=== PATIENT | female | born 1980 | race Caucasian/White ===

== ENCOUNTER 2018-10-17 10:14 | Emergency (ER) | payer OTHER ==
[~2018-10-17] VITALS: Ht 157.5 cm; Wt 76.7 kg
[~2018-10-17 10:14] MED LIST: CEPHULAC10 G/15 ML PO; DESPEC-DM TABL1 EACH PO; KETO10TA2 PO; ORPH100T PO
== END 2018-10-17 11:48 | disposition home or self-care (01) ==
LOC: ER 10:14
DX: R09.89 Other specified symptoms and signs involving the circulatory and respiratory systems (principal); J98.01 Acute bronchospasm; J06.9 Acute upper respiratory infection, unspecified

== ENCOUNTER → 2019-06-01 | Day surgery (SDC) | payer OTHER ==
[~2019-06-01] MED LIST changes: +LOMAIRA8 MG
== END | disposition home or self-care (01) ==
LOC: ADM 05-29 10:45 → CIR.AMB 08:30
DX: N84.0 Polyp of corpus uteri (principal)

== ENCOUNTER → 2020-02-15 | Outpatient (CLI) | payer OTHER | END | disposition home or self-care (01) | LOC: RAD 12:18 | PROVIDERS: ATTEND General Practice | DX: M25.532 Pain in left wrist (principal) ==